=== PATIENT | female | born 1990 | race Caucasian/White ===

== ENCOUNTER 2019-07-07 21:40 | Emergency (ER) | payer OTHER ==
[2019-07-07 21:55] VITALS: RESP 18; TEMP 98.2
[2019-07-07] MEDS ORDERED: KETOROLAC 30 MG/ML 1 ML VIAL IM STA (22:04)
[2019-07-07] MEDS ORDERED: BUPIVACAINE (PF) 0.5% 30 ML VIAL MISCELLANE STA (22:04)
[2019-07-07] MEDS ORDERED: traMADol 50 MG STARTER PACK 3 TAB BTL PO STA (22:04)
[2019-07-07] MEDS ORDERED: PENICILLIN VK 500MG STARTER 4 TAB BTL PO STA (22:29)
--- NOTE | 2019-07-07 22:31 | ED ---
General Adult HPI - General Chief complaint: Dental/Oral Stated complaint: Dental pain Time Seen by Provider: 07/07/19 21:58 Source: patient, family Mode of arrival: ambulatory Limitations: no limitations - History of Present Illness Initial comments: 29-year-old female patient presents to the emergency department for evaluation of dental pain. Patient states for the last 3 to four-day she's been experiencing pain to the left upper dentition. Patient states she does have a capped tooth in the region she believes it may be infected. She denies any facial swelling, trismus, difficulty swallowing. Denies fever or chills. States that she is sensitive to hot and cold. Denies any nausea or vomiting. Patient has been taking Tylenol throughout the day today for symptom relief but hasn't been helping. States she is unable to sleep due to the pain. Patient denies any recent rash, shortness breath, chest pain, abdominal pain, nausea, vomiting, diarrhea, constipation, back pain, numbness, tingling, dizziness, weakness, hematuria, dysuria, urinary urgency, urinary frequency, headache, visual changes, or any other complaints. - Related Data Previous Rx's Medication Instructions Recorded Ibuprofen [Motrin] 600 mg PO Q8HR PRN #30 tab 07/07/19 Penicillin V Potassium [Pen Vee K] 500 mg PO Q6H #40 tablet 07/07/19 Allergies Allergy/AdvReac Type Severity Reaction Status Date / Time No Known Allergies Allergy Verified 07/07/19 21:55 Review of Systems ROS Statement: Those systems with pertinent positive or pertinent negative responses have been documented in the HPI. ROS Other: All systems not noted in ROS Statement are negative. Past Medical History Past Medical History: No Reported History History of Any Multi-Drug Resistant Organisms: None Reported Past Surgical History: Ear Surgery Additional Past Surgical History / Comment(s): wisdom teeth Past Psychological History: Anxiety, Depression Smoking Status: Never smoker Past Alcohol Use History: Occasional Past Drug Use History: None Reported General Exam Limitations: no limitations General appearance: alert, in no apparent distress, other (This is a well- developed, well-nourished adult female patient in no acute distress. Vital signs upon presentation are temperature 98.2F, pulse 74, respirations 18, blood pressure 124/75, pulse ox 98% on room air.) Eye exam: Present: normal appearance, PERRL, EOMI. Absent: scleral icterus, conjunctival injection, periorbital swelling ENT exam: Present: normal exam, normal oropharynx, mucous membranes moist, other (There is no gingival erythema, swelling, or evidence of drainable abscess.) Respiratory exam: Present: normal lung sounds bilaterally. Absent: respiratory distress, wheezes, rales, rhonchi, stridor Cardiovascular Exam: Present: regular rate, normal rhythm, normal heart sounds. Absent: systolic murmur, diastolic murmur, rubs, gallop, clicks GI/Abdominal exam: Present: soft, normal bowel sounds. Absent: distended, tenderness, guarding, rebound, rigid Neurological exam: Present: alert, oriented X3, CN II-XII intact Psychiatric exam: Present: normal affect, normal mood Skin exam: Present: warm, dry, intact, normal color. Absent: rash Course Vital Signs 07/07/19 07/07/19 21:51 23:00 Temperature 98.2 F Pulse Rate 74 70 Respiratory 18 18 Rate Blood Pressure 124/75 130/73 O2 Sat by Pulse 98 98 Oximetry Procedures - Nerve Block Consent Obtained: verbal consent Local Anesthetic Used: Marcaine 0.5% Amount of anesthesia used: 3 Side: left Intraoral Nerve Block: other (Posterior superior alveolar) Procedure Successful: Yes Complications: none Patient Tolerated Procedure: well, no complications Medical Decision Making - Medical Decision Making 29-year-old female patient presents to the emergency department today for evaluation of left upper dental pain. Physical examination reveals an intact tooth with no surrounding gingival erythema or evidence of drainable abscess. Did perform a posterior superior alveolar nerve block which was successful, patient 0 pain at time of discharge. We started penicillin and prescribed ibuprofen for pain management. She is instructed to follow up with dentistry for recheck as soon as possible. Return parameters were discussed in detail. They verbalize understanding and agree with this plan. Disposition Clinical Impression: Dental abscess Disposition: HOME SELF-CARE Condition: Good Instructions (If sedation given, give patient instructions): Dental Abscess (ED), Toothache (ED) Additional Instructions: Take medications as directed. Alternate Tylenol Motrin for pain control. Take Ultram as needed for severe pain. Follow up with dentistry for recheck as soon as possible. Return to the emergency department immediately for any new, worsening, or concerning symptoms. Prescriptions: Ibuprofen [Motrin] 600 mg PO Q8HR PRN #30 tab PRN Reason: Pain Penicillin V Potassium [Pen Vee K] 500 mg PO Q6H #40 tablet Is patient prescribed a controlled substance at d/c from ED?: No Referrals: None,Stated [Primary Care Provider] - 1-2 days
[2019-07-07 23:02] VITALS: BP 130/73; PULSE 70
== END 2019-07-07 23:02 | disposition home or self-care (01) ==
LOC: EC 21:40
DX: K04.7 Periapical abscess without sinus (principal)
CPT/HCPCS: 99283; 64400; 96372; J1885